=== PATIENT | male | born 1975 | race Caucasian/White ===

== ENCOUNTER → 2018-02-25 15:17 | Emergency (ER) | payer SELFPAY ==
[~2018-02-25 15:17] MED LIST: Acetaminophen TAB* 325 MG PO ONE; Cephalexin CAP* 500 MG PO ONE; Lidocaine 1%* 5 ML VIAL ONE; Tetan/Diph/Pertus SYR(Tdap)* 0.5 ML SYR(BOOSTRIX) use SYR IM ONE
--- NOTE | 2018-02-25 16:54 | ED ---
Upper Extremity Pain - HPI Summary HPI Summary: [id number] patient presents with right middle finger injury at 1500 at home. He reports he was using a wood router to cut trim for remodeling project when he accidentally grazed it with his finger and cut the tip. Bleeding was profuse and so he has wrapped with a dressing and applied pressure. Denies numbness tingling or weakness. He is unsure of his last tetanus vaccine. He has not taken anything for pain prior to arrival as his pain was 1 out of 10 however descriptive to a 4 out of 10 since here. No other injuries as a result of this event. - History of Current Complaint Chief Complaint: EDLacSutureRecheck Stated Complaint: LAC TO RT HAND Time Seen by Provider: 02/25/18 15:28 Hx Obtained From: Patient, Family/Ammonia Nitrate Operator - - Allergies/Home Medications Allergies/Adverse Reactions: Allergies Allergy/AdvReac Type Severity Reaction Status Date / Time No Known Allergies Allergy Verified 02/19/17 11:42 PMH/Surg Hx/FS Hx/Imm Hx Previously Healthy: Yes Endocrine/Hematology History: Denies: Hx Anticoagulant Therapy, Hx Blood Disorders, Autoimmune Disease Cardiovascular History: Reports: Hx Hypercholesterolemia Denies: Hx Hypertension - Cancer History Cancer Type, Location and Year: 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 Infectious Disease History: No Infectious Disease History: Denies: Hx of Known/Suspected MRSA, History Other Infectious Disease, Traveled Outside the [place] in Last 30 Days - Social History Lives: With Family Alcohol Use: Occasionally Hx Substance Use: No Substance Use Type: Reports: None Hx Tobacco Use: No Smoking Status (MU): Never Smoked Tobacco Review of Systems Constitutional: Negative Positive: no symptoms reported Musculoskeletal: Other - finger pain Skin: Other - avulsion of Rt middle finger tip Neurological: Negative Psychological: Normal All Other Systems Reviewed And Are Negative: Yes Physical Exam Triage Information Reviewed: Yes Vital Signs On Initial Exam: Initial Vitals Temp Pulse Resp BP Pulse Ox 97.8 F 78 18 145/94 99 02/25/18 15:20 02/25/18 15:20 02/25/18 15:20 02/25/18 15:20 02/25/18 15:20 Vital Signs Reviewed: Yes Appearance: Positive: Well-Appearing, Well-Nourished, Pain Distress - mild but anxious Skin: Positive: Warm, Skin Color Reflects Adequate Perfusion - avulsion of distal region of Rt middle finger with clotting and oozing blood Head/Face: Positive: Normal Head/Face Inspection Eyes: Positive: EOMI ENT: Positive: Hearing grossly normal Respiratory/Lung Sounds: Positive: Breath Sounds Present Cardiovascular: Positive: Pulses are Symmetrical in both Upper and Lower Extremities Musculoskeletal: Positive: Strength/ROM Intact, Pain @ - injury TTP Neurological: Positive: Normal, Sensory/Motor Intact, Alert, Oriented to Person Place, Time, CN Intact II-III Psychiatric: Positive: Anxious - but polite, calm and cooperative Procedures - Laceration/Wound Repair 1 Location: upper extremity - Rt middle finger Anesthesia: Digital, 1.0%, Lido Length, Depth and Shape: about a 10mm surface area of avulsion of tissue - clot in place - tissue w/ jagged edges with tissue and partial nail avulsion Irrigated w/ Saline (ccs): 200 - sterile saline Laceration/Wound Explored: clean Number of Sutures: 0 Layer Closure?: No Sterile Dressing Applied?: Yes - xeroform + gauze + coban compression wrap - hemodyn stable, pt jacob well Diagnostics - Vital Signs Vital Signs Temp Pulse Resp BP Pulse Ox 02/25/18 15:20 97.8 F 78 18 145/94 99 - Laboratory Lab Statement: Any lab studies that have been ordered have been reviewed, and results considered in the medical decision making process. Course/Dx - Course Course Of Treatment: XR: Traumatic amputation of a portion of the tuft of the distal phalanx and adjacent soft tissue. Anbx initiated. Cleaned, dressed and f/u w/ hand specialist advised. Danger s/sx reviewed - pt agrees w/ plan. Dr. Rdz aware and pt will call to f/u. NOTE: provider sustained accidental needle stick during digital block - pt agreed to rapid HIV/hep C testing to guide care as needed. These labs were ordered and reviewed by Bernardo Gross PA-C - they were not part of his care for his injury today - he should not be billed for these tests. - Diagnoses Provider Diagnoses: Open fracture of phalanx of right middle finger, Avulsion, finger tip Discharge - Sign-Out/Discharge Documenting (check all that apply): Patient Departure - Discharge Plan Condition: Stable Disposition: HOME Prescriptions: Cephalexin CAP* [Keflex CAP*] 500 mg PO QID #39 cap HYDROcodone/ACETAMIN 5-325 MG* [Aurora 5-325 TAB*] 1 tab PO Q6H PRN #20 tab MDD 4 PRN Reason: Pain Patient Education Materials: Finger Fracture (ED), Acute Wound Care (ED) Forms: *Work Release Referrals: Amie Rdz MD [Medical Doctor] - Additional Instructions: Keep Dressing clean and dry and in place until seen by Dr. Rdz tomorrow - call in the morning to make an appointment. Complete antibiotics as directed. Start probiotics in between antibiotics (ie. Yogurt and/or capsules of L. acidophilus, L. bifidus, L. casei, etc) to prevent diarrhea Take ibuprofen alternating with acetaminophen as needed for pain/swelling. Aurora is a stronger pain med - use as needed. * If you develop redness, swelling, streaking, purulent drainage, fevers or chills, seek medical attention sooner or return to the emergency department. *If you bleed through your dressing, apply a new dressing, elevate and comnpress for 20 minutes - if bleeding persists, return to ED - Billing Disposition and Condition Condition: STABLE Disposition: Home
[2018-02-25] MEDS: Lidocaine 1%* 5 ML VIAL INJ ONE (17:29)
[2018-02-25 18:49] VITALS: BP 140/91
[2018-02-25 19:05] LABS: Rapid HIV 1 Nonreactive (Nonreactive)
[2018-02-26 10:37] LABS: Hepatitis C Antibody Nonreactive (Nonreactive)
== END | disposition home or self-care (01) ==
LOC: ED 15:17
DX: S62.662B Nondisplaced fracture of distal phalanx of right middle finger, initial encounter for open fracture (principal); W27.8XXA Contact with other nonpowered hand tool, initial encounter; Y93.H3 Activity, building and construction; Y92.009 Unspecified place in unspecified non-institutional (private) residence as the place of occurrence of the external cause; Z23 Encounter for immunization
CPT/HCPCS: 36415; 73140; 86703; 86803; 90471; 90715; 99282; A9270-GY

== ENCOUNTER 2018-03-02 07:19 | Day surgery (SDC) | payer MEDICAID ==
--- NOTE | 2018-03-01 13:42 | HP ---
AMENDED REPORT TO CORRECT ACCOUNT / REPORT NOW INCLUDES DESIGNATED COSIGNER ESIGNED BY JENNIFER BEFORE ADJUSTMENTS PREOPERATIVE HISTORY AND PHYSICAL: DATE OF SURGERY/ADMISSION: 03/02/18 - OR EAST DATE OF OFFICE VISIT/ENCOUNTER: 03/01/18 ATTENDING SURGEON: Amie Rdz MD.* (DICTATED BY JENNIFER JAQUEZ) PROCEDURE: Revision amputation, right long finger. CHIEF COMPLAINT: Partial amputation, right long finger. HISTORY OF PRESENT ILLNESS: This is a 42-year-old male, who injured his right middle finger on 02/25/18. He was using a union carpenter and he accidentally cut his finger. He was seen at [facility] Emergency Room and had some x- rays that show a tuft fracture of the distal phalanx. He also has a large skin defect. He has been taking Keflex prophylactically and is controlling the pain with Extra Strength Tylenol and ibuprofen. He denies any other injury. After examination by Dr. Rdz, he has consented to proceed with surgical intervention at this time in the form a revision amputation right long finger. PAST MEDICAL HISTORY: 1. High cholesterol. 2. History of melanoma. PAST SURGICAL HISTORY: Excision of melanoma on his back in 2006. CURRENT MEDICATIONS: Advil p.r.n. ALLERGIES: No known drug allergies. FAMILY MEDICAL HISTORY: Heart disease, lung disease. SOCIAL HISTORY: The patient is currently unemployed. 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 He denies tobacco use and recreational drug use. He drinks alcohol on occasion. REVIEW OF SYSTEMS: Negative for general, cephalic, cardiovascular, respiratory , GI, , other musculoskeletal, integumentary, endocrine, neurologic, and hematologic symptoms. Infectious Diseases: Negative for MRSA, hepatitis C, HIV. PHYSICAL EXAMINATION GENERAL: Well-developed, well-nourished 42-year-old male, in no acute distress. VITAL SIGNS: Height 6 feet 3 inches, weight 200 pounds. Pulse rate 96, blood pressure 116/78. HEENT: Normocephalic, atraumatic. Pupils are equal, round, and reactive to light and accommodation. Extraocular movements are intact. Throat is clear. NECK: Supple. No palpable lymph nodes. PULMONARY: Lungs are clear to auscultation bilaterally. No wheezes, rales, or rhonchi. CARDIOVASCULAR: Regular rate and rhythm. S1, S2. No murmurs, rubs, or gallops. No edema. ABDOMEN: Positive bowel sounds. Soft, nontender. NEUROLOGICAL: Alert and oriented x3. Cranial nerves II through XII are intact. Sensation is intact to light touch. MUSCULOSKELETAL: On exam of his right long finger, he has a partial amputation of the distal aspect of the middle finger involving just the pad of his finger. There is slightly loss of the fingernail. There is some exposed bone. He has active flexion and extension at the DIP joint. No sign of infection. IMAGING STUDIES: X-rays, AP, lateral and oblique of the right middle finger show an amputation through the tuft of the distal phalanx. IMPRESSION: Right middle finger partial amputation. PLAN: The patient is scheduled to undergo a revision amputation right long finger with Dr. Rdz on 03/02/18. He will return to the office 10 days postop for followup. He will use [id number] ibuprofen and/or Tylenol for postoperative pain management. JENNIFER JAQUEZ [id number]/[facility] #: [id number] LUIS
[~2018-03-02 07:19] MED LIST changes: -Acetaminophen TAB* 325 MG PO ONE; +Buffered Lidocaine 1% SYRIN* 1 ML/SYRINGE INTRADERM ONE; -Cephalexin CAP* 500 MG PO ONE; +Lactated Ringers 1000 ML Bag* 1,000 ML IV SCH; -Lidocaine 1%* 5 ML VIAL ONE; -Tetan/Diph/Pertus SYR(Tdap)* 0.5 ML SYR(BOOSTRIX) use SYR IM ONE
[2018-03-02] MEDS ORDERED: Naloxone* 0.4 MG/ML 1 ML VIAL IV PRN (08:27)
[2018-03-02] MEDS ORDERED: Lidocaine 1% INJ* 10 MG/ML 30 ML SDV ONE (08:58)
[2018-03-02] MEDS ORDERED: Midazolam* 1 MG/ML 5 ML VIAL (5 MG) ONE (09:09)
[2018-03-02 09:50] VITALS: BP 138/77
--- NOTE | 2018-03-02 11:48 | OP ---
DATE OF OPERATION: 03/02/18 [facility] DATE OF : 75. SURGEON: Amie Rdz MD. MEDICAL DIRECTOR/HEAD TEAM PHYSICIAN: JENNIFER Olguin. ANESTHESIA: Local MAC. PRE-OP DIAGNOSIS: Right long finger partial amputation. POST-OP DIAGNOSIS: Right long finger partial amputation. OPERATIVE PROCEDURE: Right long finger revision amputation. ESTIMATED BLOOD LOSS: Zero. TOURNIQUET TIME: Approximately 15 minutes. INDICATION FOR PROCEDURE: Christian is a 42-year-old man who suffered an injury to his right middle finger while using a table saw. He has a partial amputation at the tip of the finger. He presents for revision amputation. DESCRIPTION OF PROCEDURE: The patient was brought to the operating room. He was given a sedation anesthetic and a digital block with 10 cc of 1% plain lidocaine. The skin of his right hand and forearm was prepped and draped in the usual sterile fashion. The middle finger was exsanguinated with a Tourni-Cot and the Tourni-Cot was left in place for the duration of the procedure. The wound was debrided and then irrigated copiously with saline and then a V-shaped flap of the remaining skin was created, and a VY advancement flap was made and brought over the end of the finger and secured to the intact tissue. It was closed in an interrupted fashion with 4-0 nylon suture. The proximal limb was converted from a V to Y. The wound was dressed with Xeroform, 4x4, Webril, and a Coban with an AlumaFoam splint. Patient tolerated the procedure well and brought to the recovery room in good condition. [id number]/[facility] #: [id number] [facility]
== END 2018-03-02 10:19 | disposition home or self-care (01) ==
LOC: OREAST 07:19
PROVIDERS: ATTEND Orthopaedic Surgery
DX: S61.212A Laceration without foreign body of right middle finger without damage to nail, initial encounter (principal); W31.2XXA Contact with powered woodworking and forming machines, initial encounter; Y92.9 Unspecified place or not applicable; Z85.820 Personal history of malignant melanoma of skin; E78.00 Pure hypercholesterolemia, unspecified
CPT/HCPCS: J2250